=== PATIENT | female | born 1995 | race Caucasian/White ===

== ENCOUNTER 2020-07-21 21:20 | Outpatient (CLI) | payer BC, MEDICAID, OTHER ==
[~2020-07-21] VITALS: Ht 154.9 cm; Wt 69.5 kg
[2020-07-21 21:53] VITALS: BP 112/73
[2020-07-21 22:42] LABS: BASOPHILS % (AUTO) 0 % (0-1); EOSINOPHILS % (AUTO) 0 % (1-7); LYMPHOCYTES % (AUTO) 14 % (22-44); MEAN CORPUSCULAR HEMOGLOBIN 23.1 pg (27.0-34.8); MEAN CORPUSCULAR HGB CONC 31.8 g/dL (32.4-35.8); MEAN PLATELET VOLUME 9.1 fL (7.4-10.4); MONOCYTES % (AUTO) 6 % (2-9); NEUTROPHILS % (AUTO) 79 % (42-75); PLATELET COUNT 202 x10^3/uL (130-400); RED BLOOD COUNT 5.55 x10^6/uL (3.82-5.3); RED CELL DISTRIBUTION WIDTH 14.7 % (9.6-15.2)
[2020-07-21 22:46] LABS: MD NO
[2020-07-21 23:08] LABS: MICROSCOPIC NOT IND
== END 2020-07-22 00:10 | disposition home or self-care (01) ==
LOC: LDOP 21:20
PROVIDERS: ATTEND Obstetrics & Gynecology
DX: Z34.83 Encounter for supervision of other normal pregnancy, third trimester (principal); Z3A.40 40 weeks gestation of pregnancy; Z20.822 Contact with and (suspected) exposure to COVID-19
CPT/HCPCS: 36415; 59025; 76815; 81003; 85025; 86592; 86762; 86850; 86900; 87086; 87340; 87635; 87806; G0475

== ENCOUNTER 2020-07-26 05:32 | Inpatient (IN) | payer MEDICAID ==
[~2020-07-26] VITALS: Ht 154.9 cm; Wt 70.0 kg
[2020-07-26] MEDS ORDERED: LIDOCAINE 1%, 20ML ONE (05:34)
[2020-07-26] MEDS ORDERED: MISOPROSTOL 200 MCG TABLET ONE (05:34)
[2020-07-26] MEDS ORDERED: NEWBORN KIT ONE ×2 (05:34→10:45)
[2020-07-26] MEDS ORDERED: OXYTOCIN 30U/ 0.9% NaCL 500ML 500 ML ONE (05:36)
[2020-07-26 06:00] LABS: BASOPHILS % (AUTO) 1 % (0-1); EOSINOPHILS % (AUTO) 0 % (1-7); LYMPHOCYTES % (AUTO) 11 % (22-44); MEAN CORPUSCULAR HEMOGLOBIN 22.8 pg (27.0-34.8); MEAN CORPUSCULAR HGB CONC 31.4 g/dL (32.4-35.8); MEAN PLATELET VOLUME 8.8 fL (7.4-10.4); MONOCYTES % (AUTO) 6 % (2-9); NEUTROPHILS % (AUTO) 83 % (42-75); PLATELET COUNT 202 x10^3/uL (130-400); RED BLOOD COUNT 5.99 x10^6/uL (3.82-5.3); RED CELL DISTRIBUTION WIDTH 14.6 % (9.6-15.2)
[2020-07-26] MEDS ORDERED: ONDANSETRON 2MG/ML, 2ML IVPush PRN (06:00)
[2020-07-26] MEDS ORDERED: FENTANYL PF 100 MCG/2ML IV PRN (06:00)
[2020-07-26] MEDS ORDERED: ALUMINUM/MAG/SIMETHICONE 30 ML UDC PO PRN (06:00)
[2020-07-26] MEDS ORDERED: TERBUTALINE 1 MG/ML, 1ML SQ PRN (06:00)
[2020-07-26] MEDS ORDERED: LACTATED RINGERS 1,000 ML IV SCH ×2 (06:00→07:00)
[2020-07-26] MEDS ORDERED: SODIUM CITRATE/CITRIC ACID 30 ML UDC PO PRN (06:00)
[2020-07-26] MEDS ORDERED: CALCIUM CARBONATE 500 MG TAB.CHEW PO PRN (06:00)
[2020-07-26] MEDS ORDERED: FENTANYL PF 100 MCG/2ML IVPush PRN (06:00)
[2020-07-26] MEDS ORDERED: PLEASE ENTER HEIGHT AND WEIGHT MC SCH (06:00)
[2020-07-26] MEDS ORDERED: SODIUM CHLORIDE FLUSH 10ML SYR IVF PRN (06:00)
[2020-07-26] MEDS ORDERED: TERBUTALINE 1 MG/ML, 1ML IVPush PRN (06:00)
[2020-07-26] MEDS ORDERED: OXYTOCIN 30U/ 0.9% NaCL 500ML 500 ML IV ONE (06:00)
[2020-07-26 06:02] LABS: MD NO
[2020-07-26] MEDS ORDERED: FENTANYL/BUPIV./NS/PF 250 ML EPIDCONT ONE (06:10)
[2020-07-26] MEDS ORDERED: BUPIVACAINE 0.25% ONE (06:10)
[2020-07-26] MEDS ORDERED: EPHEDRINE 50 MG/ML, 1ML IVPush PRN (07:00)
[2020-07-26] MEDS ORDERED: LACTATED RINGERS 1,000 ML IVBOLUS PRN (07:00)
[2020-07-26] MEDS ORDERED: FENTANYL/BUPIV./NS/PF 250 ML EPIDCONT SCH (07:00)
[2020-07-26] MEDS: OXYTOCIN 30U/ 0.9% NaCL 500ML 500 ML IV SCH ×2 (07:30→18:00)
[2020-07-26] MEDS ORDERED: OXYcodone/APAP 5/325MG TABLET PO PRN (08:00)
[2020-07-26] MEDS ORDERED: ACETAMINOPHEN 325 MG TABLET PO PRN (08:00)
[2020-07-26] MEDS ORDERED: SIMETHICONE 80 MG CHEW TAB PO PRN (08:00)
[2020-07-26] MEDS ORDERED: DOCUSATE 100 MG CAPSULE PO PRN (08:00)
[2020-07-26] MEDS ORDERED: METHYLERGONOVINE 0.2 MG/ML IM PRN (08:00)
[2020-07-26] MEDS ORDERED: MISOPROSTOL 200 MCG TABLET PR PRN (08:00)
[2020-07-26 08:02] VITALS: BP 120/62
[2020-07-26] MEDS: IBUPROFEN 600 MG TABLET PO PRN ×2 (08:34→14:54)
[2020-07-26] MEDS ORDERED: PRENATAL VIT/IRON/FA 1 EACH TABLET PO SCH (09:00)
[2020-07-26 14:45] VITALS: BP 110/72
[2020-07-26 14:47] LABS: BASOPHILS % (AUTO) 0 % (0-1); EOSINOPHILS % (AUTO) 0 % (1-7); LYMPHOCYTES % (AUTO) 9 % (22-44); MEAN CORPUSCULAR HEMOGLOBIN 22.6 pg (27.0-34.8); MEAN CORPUSCULAR HGB CONC 31.1 g/dL (32.4-35.8); MEAN PLATELET VOLUME 8.7 fL (7.4-10.4); MONOCYTES % (AUTO) 7 % (2-9); NEUTROPHILS % (AUTO) 84 % (42-75); PLATELET COUNT 156 x10^3/uL (130-400); RED BLOOD COUNT 4.58 x10^6/uL (3.82-5.3); RED CELL DISTRIBUTION WIDTH 14.3 % (9.6-15.2)
[2020-07-26 14:57] LABS: MD NO
[2020-07-26] MEDS ORDERED: IBUP-1222 PO (19:16)
[2020-07-26] MEDS ORDERED: DOCU-131 PO (19:18)
== END 2020-07-26 20:15 | disposition home or self-care (01) | DRG 768 ==
LOC: LDOP 05:32 → LDIP 05:40 → 2NE 10:53 → 2NW 12:43
PROVIDERS: ADMIT Obstetrics & Gynecology; ATTEND Obstetrics & Gynecology
PROC: 10E0XZZ Delivery of Products of Conception, External Approach (ICD-10-PCS; principal; 2020-07-26)
PROC: 0UBC7ZX Excision of Cervix, Via Natural or Artificial Opening, Diagnostic (ICD-10-PCS; 2020-07-26)
PROC: 3E0R3BZ Introduction of Anesthetic Agent into Spinal Canal, Percutaneous Approach (ICD-10-PCS; 2020-07-26)
PROC: 00HU33Z Insertion of Infusion Device into Spinal Canal, Percutaneous Approach (ICD-10-PCS; 2020-07-26)
DX: O77.0 Labor and delivery complicated by meconium in amniotic fluid (principal); Z37.0 Single live birth; O48.0 Post-term pregnancy; O34.43 Maternal care for other abnormalities of cervix, third trimester; N84.1 Polyp of cervix uteri; Z3A.41 41 weeks gestation of pregnancy; Z20.822 Contact with and (suspected) exposure to COVID-19
CPT/HCPCS: 36415; 85025; 86592; 86850; 86900; 88305; G0378; J2590

== ENCOUNTER 2020-08-04 10:46 | Emergency (ER) | payer BC, MEDICAID ==
[~2020-08-04] VITALS: Ht 154.9 cm; Wt 63.4 kg
[~2020-08-04 10:46] MED LIST: DOCU-131 PO; IBUP-1222 PO
--- NOTE | 2020-08-04 11:18 | NUR ---
PT AMBULATORY TO ROOM 20 W/ C/O LOWER PELVIC ABD PAIN STARTED 1 WK AGO AFTER PT GAVE 8 DAYS AGO. PT STATES SHE CALLED HER OBGYN DR. MOSES WHO TOLD PT TO COME IN PTHAS FOUL SMELLING ODOR FROM VB. PT RESTING ON GURNEY. ABDOMEN SOFT AND NON-DISTENDED. PT RESTING ON GURNEY. NADN. MONITORS APPLIED. VSS. WARM BLANKET PROVIDED.
[2020-08-04 11:52] LABS: BASOPHILS % (AUTO) 1 % (0-1); EOSINOPHILS % (AUTO) 1 % (1-7); LYMPHOCYTES % (AUTO) 9 % (22-44); MEAN CORPUSCULAR HEMOGLOBIN 22.8 pg (27.0-34.8); MEAN CORPUSCULAR HGB CONC 31.1 g/dL (32.4-35.8); MEAN PLATELET VOLUME 7.6 fL (7.4-10.4); MONOCYTES % (AUTO) 5 % (2-9); NEUTROPHILS % (AUTO) 86 % (42-75); PLATELET COUNT 353 x10^3/uL (130-400); RED BLOOD COUNT 4.87 x10^6/uL (3.82-5.3); RED CELL DISTRIBUTION WIDTH 14.5 % (9.6-15.2)
[2020-08-04 12:01] LABS: MICROSCOPIC AUTO
--- NOTE | 2020-08-04 12:02 | NUR ---
DISCUSSED W/ ERP DR. MARTINS IN REGARDS TO PT RECENTLY GIVING AND IMAGING OF UTERUS FOR ANY PRODUCTS IN UTERUS. PER ERP WILL ASSESS PT.
[2020-08-04 12:04] LABS: ANION GAP 4 mmol/L (5-15); CALCIUM 8.5 mg/dL (8.5-10.1); CHLORIDE 109 mmol/L (98-107); CREATININE 0.79 mg/dL (0.55-1.02)
--- NOTE | 2020-08-04 12:07 | NUR ---
PT RESTING ON GURNEY. NADN. ROSE.
[2020-08-04 12:18] LABS: ANISOCYTOSIS 1+; HYPOCHROMIA 1+; MD MORPH REVIEW ONLY; MICROCYTOSIS 1+
[2020-08-04 12:19] LABS: <PLATELET ESTIMATE> ADEQUATE; <PLT MORPHOLOGY> NORMAL PLT MORPH; PMNS WITH VACUOLES 1+
--- NOTE | 2020-08-04 12:55 | NUR ---
MARLA COMPLETED W/ ERP DR. MARTINS AND DION MORLEY AT BEDSIDE DIRECTOR OF MEDICAL REVIEW.
--- NOTE | 2020-08-04 12:59 | NUR ---
PT CHART REVIEWED AND PLACED FOR RECHECK.
--- NOTE | 2020-08-04 13:17 | NUR ---
REPORT GIVEN TO DION OLEARY.
--- NOTE | 2020-08-04 13:40 | NUR ---
BREAK RN: PT GOING TO US
--- NOTE | 2020-08-04 13:40 | NUR ---
REPORT RECEIVED FROM DION EASON, PT A&O, RESPS EVEN AND UNLABORED. US AT BEDSIDE.
--- NOTE | 2020-08-04 13:41 | NUR ---
REPORT GIVEN TO PITA MITCHELL.
--- NOTE | 2020-08-04 14:07 | NUR ---
BREAK RN: PT BACK FROM US. PT RESTING COMFORTABLY ON GURNEY. NIALL.
--- NOTE | 2020-08-04 14:23 | NUR ---
PITA RN: REPORT BACK TO ANIRUDH ASHLEY.
--- NOTE | 2020-08-04 15:11 | NUR ---
PT RESTING ON GURNEY, A&O, RESPS EVEN AND UNLABORED. PT'S INFANT IS SLEEPING ON HER CHEST. BED LOCKED AND IN LOWEST POSITION, AWAITING PLAST[employer] WORKER CONSULT AND DISPO. PT UPDATED WITH POC, VERBALIZES UNDERSTANDING.
[2020-08-04 15:55] VITALS: BP 118/74
--- NOTE | 2020-08-04 15:56 | NUR ---
OB CONSULT COMPLETE, PER OB, PT IS TO MONITOR FOR FEVER/WORSENING SYMPTOMS AND FOLLOW UP WITH OB OUTPATIENT THIS WEEK. PT GIVEN DC INSTRUCTIONS WITH RETURN CRITERIA AND F/U INSTRUCTIONS, VERBALIZES UNDERSTANDING. PT AMBULATORY TO DC DESK WITH STEADY GAIT, ACCOMPANIED BY AND . PT A&O, RESPS EVEN AND UNLABORED, NADN AT DC.
== END 2020-08-04 15:57 | disposition home or self-care (01) ==
LOC: ED 15:40
DX: O72.1 Other immediate postpartum hemorrhage (principal); R10.2 Pelvic and perineal pain; R11.0 Nausea
CPT/HCPCS: 36415; 76830; 80048; 81001; 85025; 87086; 99285